=== PATIENT | male | born 1935 | race Caucasian/White ===

== ENCOUNTER 2019-01-22 11:52 | Outpatient (CLI) | payer MEDICARE, OTHER ==
[2019-01-22] VITALS (21 sets, daily range): BP systolic 102–128; BP diastolic 54–83
== END 2019-01-22 23:59 | disposition home or self-care (01) ==
LOC: CARD DIAG 11:52
PROVIDERS: ATTEND Internal Medicine Cardiovascular Disease
DX: I08.8 Other rheumatic multiple valve diseases (principal)
CPT/HCPCS: 93306; 93660